=== PATIENT | female | born 1990 | race Caucasian/White ===

== ENCOUNTER 2025-08-14 12:37 | Emergency (ER) | payer OTHER, SELFPAY ==
[2025-08-14 12:46] VITALS: BP 151/100; PULSE 138; RESP 18; TEMP 36.8; O2SAT 96; BMI 18.8
[2025-08-14 13:53] LABS: Hematocrit 37.8 % (36-47); Hemoglobin 13.10 g/dL (11.27-16.99); Mean Corpuscular HGB Conc 34.7 g/dL (30-55); Mean Corpuscular Hemoglobin 29.6 pg (27-33); Mean Corpuscular Volume 85.5 fl (85-98); Nucleated Red Blood Cells % 0 %; Platelet Count 286 10^3/cmm (157-399); Red Blood Count 4.42 10^6/uL (3.85-5.65); White Blood Count 5.14 10^3/uL (3.29-11.43)
[2025-08-14 14:00] LABS: HCG, Serum Qual Negative (Negative)
[2025-08-14 14:01] LABS: Alanine Aminotransferase 24 U/L (0-33); Albumin Level 4.2 g/dL (3.5-5.2); Alkaline Phosphatase 57 U/L (35-105); Anion Gap 13.9 (5-19); Aspartate Amino Transferase 18 U/L (0-32); Blood Urea Nitrogen 8 mg/dL (6-20); Calcium 9.0 mg/dL (8.5-10.5); Carbon Dioxide 24 mmol/L (22-29); Chloride 103 mmol/L (98-107); Globulin 2.3 g/dL (1.3-4.6); Glucose 177 mg/dL (65-115); Lipase 16 U/L (13-60); Osmolality Calculated 287 mOsm/kg (285-295); Potassium 3.9 mmol/L (3.5-5.1); Sodium 137 mmol/L (136-145); Total Protein 6.5 g/dL (6.6-8.7)
[2025-08-14 14:51] VITALS: BP 127/86; O2SAT 99
--- NOTE | 2025-08-14 15:06 | ED_ITS ---
HPI - Abdominal Pain 2 General: Chief Complaint: Abdominal Pain Stated Complaint: R upper ABD Pain Time Seen by Provider: 08/14/25 14:00 History of Present Illness: 34-year-old female presents to the emerg ency room with complaints of right upper quadrant abdominal pain that has been persistent for the last week and has progressively worsening. Anytime she eats or drinks she gets a sharp discomfort. She denies any dysuria urgency or frequency she has previous had a tubal ligation she has not previously had her gallbladder or appendix removed. No hematemesis coffee-ground emesis no fevers. 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 Ultrasound was forwarded from the office and is available on our PACS system. Associated Symptoms: Denies chills, dysuria and fever(s) Related Data Home Medications ?Medication ?Instructions ?Recorded ?Confirmed escitalopram oxalate 20 mg tablet 20 mg PO DAILY 08/1408/14/25 methimazole 10 mg tablet See Rx Instructions .Route . COMPLEX 08/14/25 08/14/25 Previous Rx's ?Medication ?Instructions ?Recorded hydrocodone 5 mg-acetaminophen 325 1 tab PO Q6H PRN pa in #12 tabs 08/14/25 mg tablet promethazine 25 mg tablet 25 mg PO Q6H PRN nausea and 08/14/25 vomiting #20 tabs Allergies Allergy/AdvReac Type Severity Reaction Status Date / Time azithromycin (From Zithromax) Allergy ALGY-Hives Verified 08/14/25 12:48 Review of Systems 2 Const: Denies: fever(s) or chills Card: Denies: chest pain Resp: Denies: dyspnea GI: Denies: abdominal pain : Denies: dysuria, urinary frequency or urinary urgency Musc: Denies: neck pain or back pain Skin/Breast: Denies: rash Physical Exam 2 Const: GENERAL APPEARANCE: cooperative ORIENTATION/CONSCIOUSNESS: Yes awake, Yes oriented to person, Yes oriented to place and Yes oriented to time HENMT: COMMON NORMALS: normocephalic, atraumatic and hearing grossly normal bilaterally HEAD & SCALP: normocephalic and atraumatic Resp: COMMON NORMALS: normal respiratory effort, No retractions, No use of accessory muscles and clear to auscultation bilaterally AUSCULTATION: clear to auscultation bilaterally Cardio: COMMON NORMALS: regular rate, regular rhythm and No murmurs present (Cardio) RATE: regular rate RHYTHM: regular rhythm GI: PALPATION: Yes Tenderness to palpation present (GI) Details: RUQ and No Guarding due to palpation present (GI) Extremity: COMMON NORMALS: normal to inspection, capillary refill normal, no clubbing, cyanosis or edema, no calf tenderness and no pedal edema Neuro: SENSORIUM/ORIENTATION: Yes oriented to person, Yes oriented to place and Yes oriented to time Skin: COMMON NORMALS: no rashes or lesions noted GENERAL SKIN EXAM: no rashes or lesions noted Course 2 Vital Signs: Vital signs: Vital Signs Temperature 98.2 F 08/14/25 12:46 Pulse Rate 101 H 08/14/25 15:23 Respiratory Rate 14 08/14/25 15:16 Blood Pressure 130/84 08/14/25 15:41 Pulse Oximetry 100 08/14/25 15:41 Oxygen Delivery Me thod Room Air 08/14/25 15:41 MDM - Abdominal Pain Medical Decision Making Medical decision making Social determinants: None I reviewed the patient's medical record. I reviewed the patient's current home meds. Alternate historians: Discussed with her primary care physician is seen at the office earlier today reviewed the ultrasound and labs that they had done at the office. Differential diagnosis: Acute cholecystitis, biliary colic, cholelithiasis Lab Review: Labs reviewed as found in the chart no leukocytosis liver enzymes T. bili normal. Urine normal beta-hCG negative Imaging: Ultrasound shows cholelithiasis no thickening of gallbladder wall no hydrops no dilation of the common bile duct Assessment of risk Level of risk: Moderate Hospitalization considerations: Offered admission consulted surgery patient ultimately declined Reexamination: Improved with pain medications Assessment and plan: Patient presents with persistent biliary colic. Discussed with Dr. Merrill he counseled the patient and had made plans for observation for planned cholecystectomy tomorrow. We have made all the arrangements in the admissions the patient later opted instead that she would prefer to go home she discharged home with hydrocodone promethazine to use as needed. Recommended she follow-up with general surgery as soon as she is able if she has any worsening problems or pain return. She did understand the risks including disease progressing gallstone becoming lodged in the common bile duct requiring more invasive procedures she still wishes to go home at this time. Lab Data 08/14/25 13:21 08/14/25 13:21 Labs/Radiology: Laboratory Results WBC 5.14 10^3/uL (3.29-11.43) 08/14/25 13:21 RBC 4.42 10^6/uL (3.85-5.65) 08/14/25 13:21 Hgb 13.10 g/dL (11.27-16.99) 08/14/25 13:21 Hct 37.8 % (36-47) 08/14/25 13:21 MCV 85.5 fl (85-98) 08/14/25 13:21 MCH 29.6 pg (27-33) 08/14/25 13:21 MCHC 34.7 g/dL (30-55) 08/14/25 13:21 RDW 11.6 % (12.1-15.1) L 08/14/25 13:21 Plt Count 286 10^3/cmm (157-399) 08/14/25 13:21 MPV 10.3 fL (7.4-10.4) 08/14/25 13:21 Neut % (Auto) 61.9 % 08/14/25 13:21 Lymph % (Auto) 31.3 % 08/14/25 13:21 Owen % (Auto) 5.8 % 08/14/25 13:21 Eos % (Auto) 0.4 % 08/14/25 13:21 Baso % (Auto) 0.4 % 08/14/25 13:21 Neut # (Auto) 3.18 10^3/uL (1.8-7.7) 08/14/25 13:21 Lymph # (Auto) 1.6 10^3/uL (0.8-4.8) 08/14/25 13:21 Owen # (Auto) 0.3 10^3/uL (0.2-0.9) 08/14/25 13:21 Eos # (Auto) 0.0 10^3/uL (0.0-0.8) 08/14/25 13:21 Baso # (Auto) 0.0 10^3/uL (0.0-0.1) 08/14/25 13:21 Nucleated RBC % (auto) 0 % 08/14/25 13:21 Nucleated RBCs # 0.0 /100WBC 08/14/25 13:21 Sodium 137 mmol/L (136-145) 08/14/25 13:21 Potassium 3.9 mmol/L (3.5-5.1) 08/14/25 13:21 Chloride 103 mmol/L (98-107) 08/14/25 13:21 Carbon Dioxide 24 mmol/L (22-29) 08/14/25 13:21 Anion Gap 13.9 (5-19) 08/14/25 13:21 BUN 8 mg/dL (6-20) 08/14/25 13:21 Creatinine 0.4 mg/dL (0.5-0.9) L 08/14/25 13:21 GFR Calculation 181.6 mL/min (90-130) H 08/14/25 13:21 Glucose 177 mg/dL (65-115) H 08/14/25 13:21 Calculated Osmolality 287 mOsm/kg (285-295) 08/14/25 13:21 Calcium 9.0 mg/dL (8.5-10.5) 08/14/25 13:21 Total Bilirubin 0.4 mg/dL (0.15-1.2) 08/14/25 13:21 AST 18 U/L (0-32) 08/14/25 13:21 ALT 24 U/L (0-33) 08/14/25 13:21 Alkaline Phosphatase 57 U/L (35-105) 08/14/25 13:21 Total Protein 6.5 g/dL (6.6-8.7) L 08/14/25 13:21 Albumin 4.2 g/dL (3.5-5.2) 08/14/25 13:21 Globulin 2.3 g/dL (1.3-4.6) 08/14/25 13:21 Lipase 16 U/L (13-60) 08/14/25 13:21 HCG, Qual Negative (Negative) 08/14/25 13:21 Urine Color Yellow (Yellow) 08/14/25 14:59 Urine Appearance Clear (CLEAR) 08/14/25 14:59 Urine pH 5.0 (5-7) 08/14/25 14:59 Ur Specific Timber 1.015 (1.005-1.030) 08/14/25 14:59 Urine Protein Negative (Negative) 08/14/25 14:59 Urine Glucose (UA) 1+ (Normal) H 08/14/25 14:59 Urine Ketones 1+ (Negative) H 08/14/25 14:59 Urine Blood Negative (Negative) 08/14/25 14:59 Urine Nitrate Negative (Negative) 08/14/25 14:59 Urine Bilirubin Negative (Negative) 08/14/25 14:59 Urine Urobilinogen 1.0 mg/dL (Negative) 08/14/25 14:59 Ur Leukocyte Esterase Negative (Negative) 08/14/25 14:59 Urine RBC 0-2 /hpf (0-2) 08/14/25 14:59 Urine WBC 0-5 /hpf (0-5) 08/14/25 14:59 Ur Squamous Epith Cells 0-5 /hpf (0-5) 08/14/25 14:59 Amorphous Sediment Not Reportable 08/14/25 14:59 Urine Bacteria Trace /hpf (NONE) 08/14/25 14:59 Hyaline Casts 0.40 /lpf 08/14/25 14:59 All radiology interpretation(s) finalized by discharge Discharge Plan Discharge Patient Disposition: Home Clinical Impression: Biliary colic, Cholelithiases Condition: Stable Prescriptions: New hydrocodone-acetaminophen 5-325 mg tablet 1 tab PO Q6H PRN (Reason: pain) Qty: 12 0RF promethazine 25 mg tablet 25 mg PO Q6H PRN (Reason: nausea and vomiting) Qty: 20 0RF No Action methimazole 10 mg tablet See Rx Instructions .ROUTE .COMPLEX Rx Instructions: TAKE 3.5 TABLETS BY MOUTH ONCE DAILY NEW DOSE. escitalopram oxalate 20 mg tablet 20 mg PO DAILY Discharge Orders: Discharge ED (Routine); Ordered 08/14/25 Ordered By: Blue Callejas Referrals: Marycruz Garcia MD [Primary Care Provider, Family Practice] Discharge Diet: As Directed Discharge Activity: Increase activity as tolerated Patient Instructions: Biliary Colic (ED), Gallstones (ED), Abdominal Pain (ED), Opioid Safety, Pain Management, Patient Portal & Quinn Instructions Activity Restrictions/Additional Instructions: [facility]. It is very important that you follow up as instructed or that you return to the Emergency Department should you have concerns or if your condition changes or worsens in any way. Emergency department visits are focused on emergent conditions, in some cases you may require further evaluation on an outpatient basis. You were seen in the emergency room with complaints of right quadrant abdominal pain. Ultrasound showed you do have cholelithiasis. Your symptoms are consistent with biliary colic. We did have you see a general surgeon and initially had planned for cholecystectomy you opted instead to go home for now. You are discharged home with hydrocodone and promethazine to use as needed. Avoid any fatty foods fried foods tomato-based products dairy products or citrus foods as these can all aggravate your gallbladder. Recommend you follow-up with a surgeon as an outpatient you likely will at some point need to have your gallbladder removed. (Please note that included in your discharge packet is information concerning opioid safety and pain management. This information is given to all patients were discharged from the ER regardless of their discharge diagnosis or the medicines they usually take or are prescribed.) Print Language: Vietnamese Coding Level of Care Code ED Net Web Developer for Willy Hoffman
[2025-08-14 15:16] VITALS: RESP 14
[2025-08-14] MEDS: morphine 4 mg/mL SDV 1 mL IVP (15:16)
[2025-08-14 15:17] LABS: Glucose Urine UA 1+ (Normal); Nitrate Urine Negative (Negative); Specific Gravity, Urine 1.015 (1.005-1.030)
[2025-08-14] MEDS: piperacillin-tazobactam 3.375 GM in sodium chloride 0.9% (plus) 50 ML IV (15:17)
[2025-08-14] MEDS: ondansetron 2 mg/ML SDV 2 mL 4 MG IVP (15:17)
[2025-08-14 15:22] LABS: Add Urine Microscopic? YES
[2025-08-14 15:23] VITALS: BP 124/73; PULSE 101; O2SAT 98
[2025-08-14 15:41] VITALS: BP 130/84; O2SAT 100
--- NOTE | 2025-08-14 16:08 | P.CONIM_ITS ---
Providers/Reason For Consult 2 Consulting Physician/Specialty*: Francisco Kirby MD general surgery Reason for Consult*: gallstones Requesting Physician: MD Júnior ER provider Primary Care Provider: Marycruz Garcia MD History of Present Illness History of Present Illness Isa Boyle is a 34 year old female since this weekend developed RUQ pain associated with nausea radiating to right scapula lasting hours after eating and now with just water. No fever. Never knew she had gallstones. No recent major weight loss. No history of liver problems, hepatitis, cirrhosis, jaundice or pancreatitis. No history of PUD and no black stools or bloody stools and not on any PPI or antacids. No kidney problems and has had normal stools. She is not on any strong blood thinners. Only abdominal surgery lap tubal ligation. US shows multiple stones with 3.8 mm CBD and some stones in neck of GB with mild thickening of wall c/w chronic inflammation. SHe has had baseline pain in RUQ that worsens with eating or drinking lasting several hours associated with bloating. Denies any F/C/S. Review of Systems 2 Narrative: Constitutional: denies rigors, singnificant weight gain, increased appetite HEENT: denies chronic cough, blurry vision, excessive tearing, eye pain, flashing lights, odynophagia, painful mastication, change in voice, change in taste, chronic sore throat, hypersalivation Heart: denies racing heart, palpitations, othropnea, PND Lungs: denies hemoptysis, pain with deep inspiration, chronic bronchitis GI: denies hematemesis, hematochezia, dysphagia, tenesmus : denies polyuria, hematuria, painful micturation Musculoskeletal: denies hemarthrosis, Muscle wasting, change in amubation Neuro: denies new onset syncope, dysesthesia, dysequilibrium, ptosis eyelid or face SKin: denies new onset hyperalgia, new rash new cyanosis Endocrine: denies new polyuria, polydipsia, polyphagia, heat intolerance, excessive energy Hem/Onc: denies new petechiae, swollen glands, new excessive epstaxis Psych: denies racing thought Medications/Allergies Allergies Allergy/AdvReac Type Severity Reaction Status Date / Time azithromycin (From Zithromax) Allergy ALGY-Hives Verified 08/14/25 12:48 Vitals/I&O/Wt Last Vital Signs Temp 98.2 F 08/14/25 12:46 Pulse 101 H 08/14/25 15:23 Resp 14 08/14/25 15:16 BP 130/84 08/14/25 15:41 Pulse Ox 100 08/14/25 15:41 O2 Del Method Room Air 08/14/25 15:41 Weight last 48 hrs Weight 120 lb Physical Exam 2 Narrative: Patient is a well developed well nourished and in NAD and is afebrile with vitals stable and is answering questions appropriately with a normal affect and is alert and oriented x3 HEENT: normocephalic with normal external ears and nonicteric, oral mucosa moist and dentition normal for age, trachea midline with no large masses visualized Heart: RRR, no gallops murmurs or rubs, normal PMI with no thrills Lungs: normal excursions, no loud audible wheezing, no subcutaneous emphysema Abdomen: nondistended, no gross hepatosplenomegaly, no masses, no rigidity or rebound, no loud borborygmi, I do not feel distended gallbladder, mildly to moderately tender in RUQ Neuro: nonfocal, PARRA, grossly normal sensation Musculoskeletal: good muscle tone, no fasciculations, normal gait Skin: pink warm and dry with no rashes or ecchymosis Vascular: good radial pulses, no ulceration, less than 2 second capillary refill in hand : deferred Data 08/14/25 13:21 08/14/25 13:21 A&P Assessment and plan 1. Biliary colic: 2. Chronic cholecystitis: Plan: Patient wants to proceed with lap cholecystectomy. Will admit overnight on pain medication and nausea medication and antibiotics. Since oral intake of even water triggers pain will keep NPO on IV hydration. Will plan on surgery lap choly in AM and hopefully home later that day. SHe understands risks, benefits and alternatives to surgery including bleeding, infection, cardiopulmonary problems, injury to duct/liver/pennie, continued pain, need for more surgery, conversion to open, leakage. PDMP PDMP Reviewed: Not Reviewed Coding Level of Care Code 19803 Diagnoses Biliary colic K80.50 Chronic cholecystitis K81.1
--- NOTE | 2025-08-14 16:30 | PC.RESP ---
rt attempted to explain and demonstrate I.S. with pt but pt stated that she changed her mind about the procedure and she was going home at this time and would have procedure at later date. No IS performed at this time
[2025-08-14 17:09] VITALS: BP 136/90; PULSE 84; O2SAT 97
== END 2025-08-14 17:11 | disposition home or self-care (01) ==
PROVIDERS: Emergency Medicine; Emergency Provider Family Medicine; PCP Family Medicine
DX: K80.70 Calculus of gallbladder and bile duct without cholecystitis without obstruction (principal)
CPT/HCPCS: 36415; 80053; 81001; 83690; 84703; 85025; 96374; 96375; 99284; J2270; J2405; J2543; J7030; J9999